=== PATIENT | female | born 2000 | race Two or more races ===

== ENCOUNTER 2021-07-07 12:26 | Emergency (ER) | payer OTHER ==
[~2021-07-07] VITALS: Ht 162.6 cm; Wt 54.5 kg
[2021-07-07] MEDS ORDERED: KETOROLAC 30 MG/ML 1ML VIAL IM ONE (15:05)
[2021-07-07] MEDS ORDERED: LIDOCAINE 5% (LIDODERM) PATCH TD ONE (15:05)
[2021-07-07] MEDS ORDERED: methocarbamoL 500 MG TAB PO ONE (15:05)
[2021-07-07] MEDS ORDERED: METH-1164 PO (15:52)
--- NOTE | 2021-07-07 16:02 | REP ---
INDICATION: pain. COMPARISON: None TECHNIQUE: AP and frog-lateral views FINDINGS: The femoral head is spherical in shape. The hip joint space is symmetric and well maintained. There is no fracture, dislocation, or subluxation. There is no destructive osseous lesion. IMPRESSION: Within normal limits. <Electronically signed by Garcia Chung > 07/07/21 [id number]
[2021-07-07] MEDS ORDERED: LIDO5DIS41 TOP (16:15)
[2021-07-07 16:40] VITALS: BP 118/71
[2021-07-07] MEDS ORDERED: **NOTE PATIENT COMMENT** MISC XX SCH (21:00)
== END 2021-07-07 16:40 | disposition home or self-care (01) ==
LOC: M ED 12:26
DX: M25.551 Pain in right hip (principal)
CPT/HCPCS: 73502; 96372; 99283; J1885